=== PATIENT | male | born 1940 | race Caucasian/White ===

== ENCOUNTER 2017-01-14 10:20 | Day surgery (SDC) | payer BC, OTHER ==
[2016-12-31 11:28] VITALS: BMI 24.0
--- NOTE | 2016-12-31 12:02 | PAT Medication Instructions ---
Service Date Dec 31, 2016. Current Home Medication List Aspirin (Aspirin Ec), 81 MG PO Q2D Atorvastatin (Lipitor), 40 MG PO Q2D Dutasteride (Avodart), 0.5 MG PO 1400 Epinephrine (Epipen), 0.3 MG IM UD Lisinopril/Hctz (Zestoretic 20MG/25MG), 1 TAB PO QAM Omeprazole (Prilosec), 20 MG PO QDD Medication Instructions For Your Scheduled Surgery Epinephrine (Epipen), 0.3 MG IM UD (use as directed if needed) - Check with surgeon for instructions: Aspirin (Aspirin Ec), 81 MG PO Q2D - Hold the following medications the morning of surgery: Lisinopril/Hctz (Zestoretic 20MG/25MG), 1 TAB PO QAM - Take the following medications as scheduled the night before surgery: Atorvastatin (Lipitor), 40 MG PO Q2D Dutasteride (Avodart), 0.5 MG PO 1400 Omeprazole (Prilosec), 20 MG PO QDD If you have any questions please call us at [phone] or [phone] or [phone]
--- NOTE | 2016-12-31 12:28 | DIAGNOSTIC IMAGING REPORT ---
CHEST PREADMISSION(PA/LAT) CLINICAL HISTORY: 76 years-old Male presenting with PAT. TECHNIQUE: PA and lateral views of the chest were obtained. COMPARISON: None. FINDINGS: Atherosclerosis of aortic arch. Cardiac silhouette normal in size. Apparent nodule projecting over the periphery of the left midlung may represent a overlapping bone island in the left sixth rib given its density. Lungs and pleural spaces clear. Degenerative changes of the thoracic spine. Upper abdomen normal. IMPRESSION: 1. No acute cardiopulmonary disease. Electronically signed by: Rivas Moran M.D. 12/31/2016 12:27 PM Dictated Date/Time: 12/31/2016 12:26 PM
[2016-12-31 12:51] LABS: BASO % 0.4 %; BASO ABS # 0.03 K/uL (0-0.2); COMPLETE YES; EOS % 1.2 %; HEMATOCRIT 45.6 % (42-52); IG% 0.1 %; LYMPH % 16.3 %; LYMPH ABS # 1.36 K/uL (1.2-3.4); MEAN CELL VOLUME 92.5 fL (80-100); MEAN CORPUSCULAR HEMOGLOBIN 32.7 pg (25-34); MEAN CORPUSCULAR HGB CONC 35.3 g/dl (32-36); MEAN PLATELET VOLUME 9.6 fL (7.4-10.4); MONO % 8.6 %; NEUT % 73.4 %; PLATELET COUNT 241 K/uL (130-400); RED BLOOD COUNT 4.93 M/uL (4.7-6.1); WHITE BLOOD COUNT 8.34 K/uL (4.8-10.8)
[2016-12-31 12:59] LABS: URINE APPEARANCE CLEAR (CLEAR); URINE BILIRUBIN NEG (NEG); URINE COLOR YELLOW; URINE NITRITE NEG (NEG); URINE SPECIFIC GRAVITY 1.011 (1.000-1.030); UROBILINOGEN NEG (NEG)
[2016-12-31 13:07] LABS: MANUAL MICROSCOPIC REQUIRED? NO; REVIEW REQ? NO
[2016-12-31 13:18] LABS: BUN/CREATININE RATIO 17.7 (10-20); CALCIUM 8.7 mg/dl (8.5-10.1); CREATININE 1.2 mg/dl (0.60-1.40); POTASSIUM 3.6 mmol/L (3.5-5.1)
[~2017-01-14] VITALS: Ht 182.9 cm; Wt 79.8 kg
[~2017-01-14 10:20] MED LIST: ASPI81TA28 PO; ATOR-24 PO; ATROPINE SULFATE 0.1 MG/ML 5ML SYR IV PRN; CIPROFLOXACIN / D5W 400 MG IV SCH; DUTA0.5C PO; EPP3/2 IM; EpHEDrine SULFATE INJ 50 MG/ML AMP IV PRN; FENTANYL CITRATE INJ 50 MCG/1 ML 2 ML VIAL IV PRN; HYDROmorphone INJ 1 MG/ML SYR IV PRN; LACTATED RINGER'S 1000ML 1,000 ML IV SCH; LISI-788 PO; ONDANSETRON INJ 2 MG/ML 2 ML VIAL IV PRN; PRLSR20 PO
[2017-01-14 10:37] VITALS: BP 115/82; PULSE 112; TEMP 37.1; O2SAT 94; Ht 182.9 cm; Wt 79.8 kg
[2017-01-14] MEDS ORDERED: FENTANYL CITRATE INJ 50 MCG/1 ML 2 ML VIAL IV PRN (11:00)
[2017-01-14] MEDS ORDERED: HYDROmorphone INJ 1 MG/ML SYR IV PRN (11:00)
[2017-01-14] MEDS ORDERED: PHENYLEPHRINE 100MCG/ML 5ML SYR IV PRN (11:00)
[2017-01-14] MEDS ORDERED: ONDANSETRON INJ 2 MG/ML 2 ML VIAL IV PRN (11:00)
[2017-01-14] MEDS ORDERED: ATROPINE SULFATE 0.1 MG/ML 5ML SYR IV PRN (11:00)
[2017-01-14] MEDS ORDERED: EpHEDrine SULFATE INJ 50 MG/ML AMP IV PRN (11:00)
--- NOTE | 2017-01-14 11:45 | History & Physical Bridge Note ---
H&P Re-Evaluation Bridge Note: I have examined the patient, reviewed the History & Physical and in the interval since the performance of the History & Physical I have noted the following changes of clinical significance: No changes noted
[2017-01-14] MEDS ORDERED: LIDOCAINE HCL 2% 2 ML VIAL (20MG/ML) ONE (11:46)
[2017-01-14] MEDS ORDERED: MIDAZOLAM HCL 1 MG/ML 2ML VIAL ONE (11:46)
[2017-01-14] MEDS ORDERED: ONDANSETRON INJ 2 MG/ML 2 ML VIAL ONE (11:46)
[2017-01-14] MEDS ORDERED: DEXAMETHASONE SOD INJ 4 MG/ML VIAL ONE (11:46)
[2017-01-14] MEDS ORDERED: PROPOFOL IV EMULSION 10 MG/ML 20 ML VIAL IV ONE (11:46)
[2017-01-14] MEDS ORDERED: FENTANYL CITRATE INJ 50 MCG/1 ML 2 ML VIAL ONE ×3 (11:47→12:39)
[2017-01-14] MEDS ORDERED: EpHEDrine SULFATE INJ 50 MG/ML AMP ONE (12:34)
[2017-01-14] MEDS ORDERED: SODIUM CHLORIDE 0.9% INJ 10 ML VIAL ONE (12:34)
[2017-01-14] MEDS ORDERED: PHENYLEPHRINE HCL INJ 10 MG/ML VIAL ONE (12:34)
[2017-01-14] MEDS ORDERED: OXYC-57 PO (13:44)
[2017-01-14] MEDS ORDERED: DOCU-94 PO (13:44)
[2017-01-14] MEDS ORDERED: NITR-5 PO (13:44)
--- NOTE | 2017-01-14 13:46 | Discharge Instructions ---
Discharge Instructions Date of Service Jan 14, 2017. Visit Reason for Visit: Urinary Retention, Benign Prostatic Hypertrophy Discharge Discharge Diagnosis / Problem: urinary retention Discharge Goals Goal(s): Therapeutic intervention Activity Recommendations Activity Limitations: as noted below Lifting Limitations: gradually increase as tolerated Exercise/Sports Limitations: until after follow-up appointment May Resume Sexual Activity: after follow-up appointment Shower/Bathe: no limitations Driving or Machine Use: resume 3 days after discharge Anesthesia . Post Anesthesia Instructions: If you have had General Anesthesia or IV Sedation: * Do not drive today. * Resume driving when surgeon permits. * Do not make important decisions or sign legal documents today. * Call surgeon for: 1. Temperature elevations greater than 101 degrees F. 2. Uncontrollable pain. 3. Excessive bleeding. 4. Persistent nausea and vomiting. 5. Medication intolerance (nausea, vomiting or rash). * For nausea and vomiting use only clear liquids such as: tea, soda, bouillon until nausea subsides, then gradually increase diet as tolerated. * If you have any concerns or questions, call your surgeon's office. If physician is unavailable and it is an emergency, call 911 or go to the nearest emergency room. . Diet Recommendations Recommended Home Diet: resume previous diet Procedures Procedures Performed: Button Transurethral Resection Prostate Pending Studies Studies pending at discharge: no Medical Emergencies . Who to Call and When: Medical Emergencies: If at any time you feel your situation is an emergency, please call 911 immediately. . Non-Emergent Contact Non-Emergency issues call your: Urologist Call Non-Emergent contact if: temperature is above 101.5, your pain is not controlled . . "Provider Documentation" section prepared by Maykel Reeder. . [place] Drug Monitoring Program Search Results: patient reviewed within database
[2017-01-14] MEDS ORDERED: OXYCODONE/ACETAMINOPHEN 5-325 TAB PO PRN (14:00)
--- NOTE | 2017-01-14 14:12 | Anesthesiology Progress Note ---
Anesthesia Post Op Note Date & Time Jan 14, 2017 at 14:12 Vital Signs Pain Intensity: 0 Vital Signs Past 12 Hours Date Time Temp Pulse Resp B/P (MAP) Pulse Ox O2 Delivery O2 Flow Rate FiO2 01/14/17 14:05 80 13 137/87 95 Room Air Oxymask 01/14/17 13:55 81 20 132/86 98 Oxymask 10 01/14/17 13:48 88 14 128/82 99 Oxymask 10 01/14/17 13:39 36.0 87 16 107/78 98 Oxymask 10 01/14/17 10:37 37.1 112 18 115/82 (93) 94 Room Air Notes Mental Status: alert / awake / arousable, participated in evaluation Pt Amnestic to Procedure: Yes Nausea / Vomiting: adequately controlled Pain: adequately controlled Airway Patency, RR, SpO2: stable & adequate BP & HR: stable & adequate Hydration State: stable & adequate Anesthetic Complications: no major complications apparent
[2017-01-14 14:25] VITALS: BP 156/75; PULSE 88; TEMP 36.7; O2SAT 93
[2017-01-14 15:00] VITALS: BP 147/86; PULSE 89; TEMP 36.4; O2SAT 93
--- NOTE | 2017-01-14 15:22 | [facility] Operative Report ---
Operative Report Operative Date Jan 14, 2017. Pre-Operative Diagnosis Urinary Retention Post-Operative Diagnosis Urinary Retention Procedure(s) Performed Button Transurethral Resection Prostate Surgeon Lilli Stereotyper Helper Surgeon(s) none Estimated Blood Loss 20cc Findings Cystoscopic exam revealed a normal anterior urethra prostatic fossa was obstructing with kissing lateral lobes and a very elevated median lobe with a ball valve type configuration bladder showed 1-2+ trabeculation with cellules Specimens None per surgeon Drains 20 [place]ican Dumont Anesthesia Gen. Complication(s) None Disposition Recovery Room / PACU Indications Patient's a 76-year-old white male who has been in urinary retention with a Dumont catheter is being brought in now for transurethral vaporization of the prostate Description of Procedure After the induction of an adequate general anesthetic and appropriate timeout patient was placed in the dorsal lithotomy position. Lower abdomen and genitalia were prepped with Hibiclens draped in the sterile fashion. Using a 22 [place]ican cystoscope routine cystoscopic exam was performed with the above- noted findings. Next the fossa navicularis was dilated to 28 [place]ican with Jes sounds. 24 [place]ican resection scope and vaporization loop were inserted. Under direct vision. Prostatic adenoma was vaporized from the bladder neck to the verumontanum from 1 :00 to 6:00 clockwise 11:00 to 6:00 counterclockwise strip between 11 and 1 at the bladder neck was left untouched to help prevent bladder neck contractions. after opening up the prostatic fossa Rodirguez knife was used to incise the bladder neck at 5 and 7:00 following this any bleeding points were like coagulated. Bladder was reinspected there were no tissue fragments remaining in the bladder. After getting hemostasis bladder was filled patient voided with good stream on Cred maneuver. 20 [place] Dumont cath inserted per urethra into the bladder and hooked to gravity drainage. All needle sponges counts were correct at the end of the case. Patient tolerated the procedure well and was taken to the recovery room in stable condition I attest to the content of the Intraoperative Record and any orders documented therein. Any exceptions are noted below.
== END 2017-01-14 15:28 | disposition home or self-care (01) ==
LOC: C.ACU 10:20
PROVIDERS: ATTEND Urology
DX: N40.1 Benign prostatic hyperplasia with lower urinary tract symptoms (principal); R33.8 Other retention of urine; I10 Essential (primary) hypertension; E78.5 Hyperlipidemia, unspecified; J45.909 Unspecified asthma, uncomplicated; K21.9 Gastro-esophageal reflux disease without esophagitis; R91.1 Solitary pulmonary nodule; Z87.891 Personal history of nicotine dependence; Z79.82 Long term (current) use of aspirin; Z79.899 Other long term (current) drug therapy

== ENCOUNTER 2017-06-11 11:15 | Inpatient (IN) | payer BC, OTHER ==
[~2017-06-11] VITALS: Ht 182.9 cm; Wt 79.5 kg
[~2017-06-11 11:15] MED LIST changes: -ATROPINE SULFATE 0.1 MG/ML 5ML SYR IV PRN; -CIPROFLOXACIN / D5W 400 MG IV SCH; -EpHEDrine SULFATE INJ 50 MG/ML AMP IV PRN; -FENTANYL CITRATE INJ 50 MCG/1 ML 2 ML VIAL IV PRN; -HYDROmorphone INJ 1 MG/ML SYR IV PRN; -LACTATED RINGER'S 1000ML 1,000 ML IV SCH; +NITR-5 PO; -ONDANSETRON INJ 2 MG/ML 2 ML VIAL IV PRN; +OXYC-57 PO
[2017-06-11 16:20] VITALS: BP 144/82; PULSE 87; TEMP 36.8; O2SAT 95
[2017-06-11 16:21] VITALS: O2SAT 95; Ht 182.9 cm; Wt 79.5 kg
[2017-06-11 16:30] VITALS: O2SAT 95
[2017-06-11] MEDS ORDERED: ONDANSETRON INJ 2 MG/ML 2 ML VIAL IV PRN (17:00)
[2017-06-11] MEDS ORDERED: OXYCODONE/ACETAMINOPHEN 5-325 TAB PO PRN ×2 (17:00)
[2017-06-11] MEDS ORDERED: MoRPHine SULFATE 2 MG/ML CARP IV PRN (17:00)
[2017-06-11] MEDS ORDERED: ACETAMINOPHEN 325 MG TAB PO PRN (17:00)
[2017-06-11] MEDS ORDERED: ALUMINUM/MAGNESIUM/SIMETH (MAALOX MAX) 30 ML UDC PO PRN (17:00)
--- NOTE | 2017-06-11 17:10 | History and Physical ---
History & Physical Date & Time of Service: Jun 11, 2017 at 16:52 Chief Complaint: Loculated Hemothroax Primary Care Physician: Javier Livingston M.D. History of Present Illness Source: patient This is a 76 yo M with PMHx of HTN, HLD, COPD, emphysema, solitary pulmonary nodule, asthma, asbestos exposure, hx of chronic tobacco abuse, BPH and enlarged prostate, and GERD who presents from [facility] after being evaluated by Dr. Hawkins for Left sided hemothorax vs loculated effusions. Pt sustained L sided chest wall trauma from falling off a 4 foot high stoop, and subsequently suffered multiple rib fractures. Pt has been treated with a Triflow , however symptoms have progressed to the point where he is unable to perform triflow without pain nor was as efficient and was becoming more short of breath , so subsequently called 911. Pt [address] of the chest completed and showed a moderate sized collection of fluid in the left lung, which was considered to he a complex pleural effusion vs hemothorax, no pneumothorax. There are moderately displaced posteriolateral 8-10 rib fractures. CTA was negative for PE. He was treated with zithromax and rocephin for possible pneumonia. He reports pain is fairly well controlled, and only painful with deep breaths and cough. Has been using tylenol and ibuprofen. He does not need supplemental O2 at baseline. Plan was discussed with the patient and his over the phone. All their questions and concerns were answered. At OSH hgb = 13.2, hct = 37.9, WBC = 13.1. CT chest outpatient records reviewed as above. Past Medical/Surgical History Medical Problems: (1) Asthma (2) BPH (benign prostatic hyperplasia) (3) COPD (chronic obstructive pulmonary disease) (4) Emphysema lung (5) Hemothorax on left (6) History of tobacco abuse (7) HLD (hyperlipidemia) (8) HTN (hypertension) (9) Solitary pulmonary nodule (10) Urinary retention Family History FHx: brain tumor FHx: colon cancer FHx: myocardial infarction Social History Smoking Status: Former Smoker Smokeless Tobacco Use: No Alcohol Use: none Drug Use: none Marital Status: Housing status: lives with family Occupational Status: retired Allergies Coded Allergies: BEE STING (Verified Allergy, Severe, anaphylaxis, 12/31/16) has epi pen NO KNOWN DRUG ALLERGIES (Verified Allergy, Unknown, nkda, 01/14/17) Home Medications Scheduled Aspirin (Aspirin Ec), 81 MG PO Q2D Atorvastatin (Lipitor), 40 MG PO Q2D Dutasteride (Avodart), 0.5 MG PO 1400 Epinephrine (Epipen), 0.3 MG IM UD Lisinopril/Hctz (Zestoretic 20MG/25MG), 1 TAB PO QAM Omeprazole (Prilosec), 20 MG PO QDD Review of Systems Constitutional: No fever, sweats or chills Eyes: No diplopia, no worsening or blurred vision ENT: normal hearing, no trouble swallowing Respiratory: See HPI Cardiovascular: No chest pain, tightness or palpitations Abdomen: No pain, nausea, vomiting, diarrhea or constipation Musculoskeletal: No joint pain, calf pain, swelling Neurologic: No weakness, numbness/tingling, or balance problems Psychiatric: No anxiety or depression Skin: No rash or itch Physical Exam Vital Signs Date Time Temp Pulse Resp B/P (MAP) Pulse Ox O2 Delivery O2 Flow Rate FiO2 06/11/17 16:21 95 Nasal Cannula 2.0 06/11/17 16:20 36.8 87 17 144/82 (102) 95 Nasal Cannula 2.0 General: awake, alert, no apparent distress Head: Normocephalic, atraumatic ENT: PERRL, EOMI, no pharyngeal exudate, mucous membranes moist Chest: On 2 L via NC, diminished breath sounds in the left lower lobe, no crackles, wheezes or rales Cardiac: Regular rate and rhythm, no murmur, no JVD, normal peripheral pulses, good capillary refill Abdominal: NABS x 4 quadrants, soft, nontender to palpation, no rebound, guarding or tenderness Extremities: Normal inspection, no peripheral edema or erythema, calfs nontender to palpation Psych: Normal mood and affect Neuro: AAO x 3, strength intact bilaterally and related 5/5, no motor deficits, speech is clear, no peripheral sensory deficits Diagnostics Diagnostic Radiology Reviewed as per outpatient notes Imaging studies have been requested from [facility] EKG Ordered Impression Assessment and Plan 76 yo M with PMHx of HTN, HLD, COPD, emphysema, solitary pulmonary nodule, asthma, asbestos exposure, hx of chronic tobacco abuse, BPH and enlarged prostate, and GERD who presents from [facility] after being evaluated by Dr. Hawkins for Left sided hemothorax vs loculated effusions. Pt sustained L sided chest wall trauma from falling off a 4 foot high stoop, and subsequently suffered multiple rib fractures. Pt has been treated with a Triflow, however symptoms have progressed to the point where he is unable to perform triflow without pain nor was as efficient and was becoming more short of breath, so subsequently called [address]. Pt [address] of the chest completed and showed a moderate sized collection of fluid in the left lung, which was considered to he a complex pleural effusion vs hemothorax, no pneumothorax. There are moderately displaced posteriolateral 8-10 rib fractures. CTA was negative for PE. He was treated with zithromax and rocephin for possible pneumonia. Complex pleural effusion versus hemothorax History of COPD History emphysema Remote history of chronic tobacco use/asbestos exposure Solitary pulmonary nodule Posteriolateral rib fractures, left 8-10 -Admit to MedSurg -Check CBC -hemoglobin at OSH equal to 13.1, PRP -consult pulmonary medicine and thoracic surgery for possible procedure: VATS, thoracoscopy -Continue incentive spirometry, flutter therapy -Analgesia with tylenol, ibuprofen, just finishing it you want me to see for a one since them on the floor can go upstairs and see for a 1 to this is sure so this 1 is [place] state and this is a needs of bronchi Dr. Louis thank you Percocets, IV morphine, Tylenol, -use a splint with deep breaths/cough and encourage ambulation Hypertension -Continue CODE CLERK meds: HCTZ/lisinopril 20-25 HLD -Continue statin therapy BPH/ urinary retention - Cont avodart DVT prophylaxis: Teds, SCDs, no chemical anticoagulation with possibility of hemothorax CODE STATUS: Full code Disposition: Patient from home, lives with possible discharge in~2 days I personally interviewed and examined the patient. I agree with history of present illness and physical exam mentioned above, I also performed my own history taking and examination. Past medical history and review of system has been obtained by myself I reviewed all pertinent labs and studies Reviewed current medications I discussed and formulated of the assessment and plan mentioned above. Please refer to the Summary mentioned below. 76-year-old man with past medical history of hypertension, dyslipidemia, COPD, emphysema, solitary pulmonary nodule, asthma, chronic tobacco abuse, BPH, GERD, history of asbestosis exposure. Patient had a mechanical fall and landed on his left side of his chest, had multiple rib fractures currently complicated by a loculated effusion/possible hemothorax. He was transferred for possible chest tube or VATS Consult cardiothoracic surgeon, n.p.o. from midnight, check INR Pain management, incentive spirometer. General Appearance: not in acute distress Eyes: normal Sclerae, extraocular muscle intact ENT: hearing grossly normal Neck: supple Respiratory/Chest: normal air entry bilateral ,no respiratory distress, no accessory muscle use Cardiovascular: regular rate, rhythm, no murmur Abdomen: non tender, soft, no masses Extremities: no edema musculoskeletal: no significant swelling or inflammation in any joint Neurologic/Psychiatric: Awake alert oriented times place and person moves all extremities sensation intact cranial nerves II-12 appear to be intact Skin: normal color, warm/dry, no rash Sameer Leo MD, [facility] Advanced Directives Existing Living Will: No Existing Power of Wind Turbine Machinist: No Resuscitation Status VTE Prophylaxis Will order VTE Prophylaxis: No Reason for no VTE drug order: Contraindicated Reason no Mechanical VTE Order: Treatment not indicated
[2017-06-11] MEDS ORDERED: EPINEPHRINE ADULT AUTO-INJECT 0.3 MG SYR IM SCH (17:45)
[2017-06-11] MEDS ORDERED: IBUPROFEN 200 MG TAB PO PRN (17:45)
[2017-06-11] MEDS: PANTOprazole SOD 40 MG TAB PO SCH (17:45)
[2017-06-11 17:50] LABS: BASO % 0.2 %; BASO ABS # 0.02 K/uL (0-0.2); EOS % 0.3 %; EOS ABS # 0.04 K/uL (0-0.5); HEMATOCRIT 35.9 % (42-52); HEMOGLOBIN 12.6 g/dL (14.0-18.0); IG# 0.02 K/uL (0.00-0.02); LYMPH ABS # 0.94 K/uL (1.2-3.4); MEAN CELL VOLUME 91.6 fL (80-100); MEAN CORPUSCULAR HEMOGLOBIN 32.1 pg (25-34); MEAN CORPUSCULAR HGB CONC 35.1 g/dl (32-36); MEAN PLATELET VOLUME 9.1 fL (7.4-10.4); MONO % 7.8 %; MONO ABS # 0.91 K/uL (0.11-0.59); NEUT % 83.5 %; NEUT ABS # 9.79 K/uL (1.4-6.5); PLATELET COUNT 207 K/uL (130-400); RED CELL DISTRIBUTION WIDTH CV 13.2 % (11.5-14.5); RED CELL DISTRIBUTION WIDTH SD 43.6 fL (36.4-46.3); WHITE BLOOD COUNT 11.72 K/uL (4.8-10.8)
[2017-06-11 18:19] LABS: CALCIUM 8.3 mg/dl (8.5-10.1); CREATININE 1.07 mg/dl (0.60-1.40)
[2017-06-11] MEDS: CEFTRIAXONE SOD INJ 1,000 MG in DEXTROSE 5% 50ML 50 ML IV SCH (18:33)
[2017-06-11] MEDS: ATORVASTATIN 40 MG TAB PO SCH (20:44)
[2017-06-11] MEDS ORDERED: ERGOCALCIFEROL 50,000 INTER.UNIT CAP PO SCH (22:00)
[2017-06-11 22:48] VITALS: BP 132/77; PULSE 72; TEMP 36.8; O2SAT 91
[2017-06-12 07:15] LABS: BASO % 0.5 %; BASO ABS # 0.03 K/uL (0-0.2); EOS % 1.8 %; EOS ABS # 0.12 K/uL (0-0.5); HEMOGLOBIN 11.7 g/dL (14.0-18.0); IG# 0.02 K/uL (0.00-0.02); LYMPH % 14.6 %; LYMPH ABS # 0.97 K/uL (1.2-3.4); MEAN CELL VOLUME 92.6 fL (80-100); MEAN CORPUSCULAR HEMOGLOBIN 31.9 pg (25-34); MEAN CORPUSCULAR HGB CONC 34.4 g/dl (32-36); MEAN PLATELET VOLUME 9.4 fL (7.4-10.4); MONO % 11.4 %; MONO ABS # 0.76 K/uL (0.11-0.59); NEUT % 71.4 %; NEUT ABS # 4.74 K/uL (1.4-6.5); PLATELET COUNT 181 K/uL (130-400); RED CELL DISTRIBUTION WIDTH CV 13.1 % (11.5-14.5); RED CELL DISTRIBUTION WIDTH SD 44.4 fL (36.4-46.3); WHITE BLOOD COUNT 6.64 K/uL (4.8-10.8)
[2017-06-12 07:50] LABS: ALBUMIN 3.1 gm/dl (3.4-5.0); CALCIUM 8.3 mg/dl (8.5-10.1); POTASSIUM 4.1 mmol/L (3.5-5.1)
[2017-06-12 07:53] LABS: TOTAL PROTEIN 5.9 gm/dl (6.4-8.2)
[2017-06-12 07:58] VITALS: BP 138/76; PULSE 78; TEMP 36.7; O2SAT 93
[2017-06-12] MEDS: AVODART: ORDER AWAITING ACTION SCH ×3 (08:00→15:43)
--- NOTE | 2017-06-12 08:25 | SURGICAL CONSULTATION ---
DATE OF CONSULTATION: 06/12/2017 REASON FOR CONSULTATION: Right hemothorax. HISTORY OF PRESENT ILLNESS: Anant Gibbons is a relatively healthy 76-year-old male who does have a history of cigarette smoking. He is followed by Mr. Magdy Singh, from a pulmonary standpoint, sees him on a yearly basis and saw him on March 01 and was told he was "in good shape" He does have a history of asthma with some mild asbestos exposure. He smoked for about 30 years and about a quarter of a pack a day, but quit in 1989. Ten days ago, the patient slipped and fell off of the stoop and fractured some ribs on the left side. He was evaluated in the Emergency Room and seem to have fractured ribs at [facility], but then he was treated with pain meds and was "getting along all right" until he noted that the amount that he was able to inhale with his incentive spirometer decreased. He then became quite short of breath and dyspneic. He was evaluated by Dr. Gt Hawkins yesterday was noted to have a large loculated effusion on the left. He was transferred up here. He has had no fevers and no chills. I was asked to evaluate him from a thoracic standpoint. Apparently, it appears that he has a complex hemothorax. PAST MEDICAL HISTORY: 1. Chronic obstructive pulmonary disease (mild). 2. Benign prostatic hypertrophy. 3. Asthma. 4. History of tobacco use. 5. Hypertension. 6. Hyperlipidemia. 7. History of urinary retention in the past. 8. Apparent solitary pulmonary nodule. PAST SURGICAL HISTORY: Noncontributory. MEDICATIONS (AT HOME): 1. Aspirin. 2. Lipitor. 3. Avodart. 4. Zestoretic. 5. Prilosec. ALLERGIES: No known drug allergies. SOCIAL HISTORY: The patient worked for [employer] for 37 years. He lives with his . He was in the army. He smoked from the age of 18 until 48. He states a pack of cigarettes would last him for a week. He lives at home with his . He is retired. FAMILY MEDICAL HISTORY: Significant for history of colon cancer, coronary artery disease, hypertension, hyperlipidemia and history of brain tumor. His 2 children and 6 grandchildren are healthy. REVIEW OF SYSTEMS: His weight has been stable. He denies fevers or chills. Really his only complaint is respiratory and left-sided chest pain of course which is actually improved over the last 10 days. He denies hemoptysis. He has had no decreased vision or auditory symptoms. He has had no neurologic symptoms. He denies chest tightness or palpitations. He has had no GI or symptoms. He denies any wound breakdown. PHYSICAL EXAMINATION: GENERAL: This is a well developed, well nourished male who appears younger than his stated age of 76. The patient stands 6 feet tall and weighs 175 pounds. He wears glasses. HEENT: Extraocular movements are intact. Pupils are equal, round, reactive. Sclerae are anicteric. He has no oral mucosal lesions. His tongue is midline. NECK: Supple. He has no tracheal deviation or neck vein distention. He has no supraclavicular or cervical lymphadenopathy. He has a regular rate and rhythm of his heart. He does have decreased breath sounds on the left. He has pain on the posterolateral aspect of his left lateral chest; however, there is no ecchymosis and no crepitus. ABDOMEN: Nice and soft with no evidence of ascites or hepatosplenomegaly. HEART: He has a regular rate and rhythm of his heart; however, his heart sounds are a bit distant. EXTREMITIES: He has excellent peripheral pulses. No joint effusions. NEUROLOGIC: He is completely intact. Cranial nerves II-XII are intact. ASSESSMENT AND PLAN: Loculated effusion with probable hemothorax. His hemoglobin this morning is 11.7. We have 2 options. One option would be to insert a chest tube and do the MIST2 protocol; however, I think the better part of valor in this patient will be to take him to the operating room and do a thoracoscopy with evacuation of the hemothorax and an Exparel block to help control his pain. I think this will lead to an expedient resolution of this problem. [facility]
[2017-06-12] MEDS: ASPIRIN 81 MG ECTAB PO SCH (08:54)
[2017-06-12] MEDS: LIDODERM (LIDOCAINE) PATCH 5% TD SCH (08:57)
[2017-06-12] MEDS ORDERED: LISINOPRIL/HCTZ 20/25MG TAB PO SCH (09:00)
--- NOTE | 2017-06-12 10:28 | PULMONARY CONSULTATION ---
DATE OF CONSULTATION: 06/12/2017 Pulmonary consultation. TIME: 8:40 a.m. REPORT OF CONSULTATION: The patient was seen in room 377, bed 2. He is a 76-year-old male who suffered a fall outside of his home on 06/02/2017. He apparently fell off a 4-feet high stoop. He states that he hit the railing and then at the bottom hit the post. He had some modest amount of pain. The patient lives alone. It began to hurt more the next day. He went to an urgent care and was told that he had 2 rib fractures. He was given some tramadol and incentive spirometry. He was using the incentive device and was able to get up to the 3500 anastasiya. Over the next several days, the amount of air he could move on the incentive continuously declined. He also had increased pain. On 06/10/2017, he states he could only get the incentive up to 2000 which was only a little more than half of what it had been previously. He was having more shortness of breath. He felt like it was harder to take a deep breath. The pain was increasing. He then went to [facility]. He was admitted there. Dr. Hawkins saw him on consult and recommended he be moved to [facility] for evaluation and treatment. The patient overall feels pretty good at the present time. His breathing is not bothering him, although he is not doing anything for exertion. He has been on low-flow oxygen. He has just a slight cough. He is not expectorating any phlegm. The patient states he usually has no shortness of breath. He denies difficulty going up steps. He denies difficulty walking long distances on level ground. The patient lives in a log home by himself. He states he has a basement and he has no difficulty going up the steps to the first floor. He in the past had had a lung nodule that apparently was followed. There was no significant change. The patient denies to me a history of asthma or COPD, although some of his records suggest that he may have had asthma. In 2008, he had pulmonary function testing done that showed a mild obstructive pattern with improvement following bronchodilators. He states that he was on Symbicort for a short time but nothing since then. He has never had any anesthesia problems. PAST SURGICAL HISTORY: 1. Tonsillectomy. 2. Some type of prostate procedure. PAST MEDICAL HISTORY: 1. BPH with obstruction. 2. GERD. 3. Hyperlipidemia. 4. Hypertension. SOCIAL HISTORY: The patient smoked from 1959 until 1986 and he states it was only 3 cigarettes per day. Alcohol use is 1 beer per week. ALLERGIES: No known medication allergies. HE IS ALLERGIC TO BEE STINGS. FAMILY HISTORY: Twin brother with colon cancer. Mother at age 82 with an OH. Patient's brother that had colon cancer also had mets to the brain. Father at age 89 of what he calls natural causes. MEDICATIONS: At home: 1. Aspirin 81 mg daily. 2. Atorvastatin 40 mg every other day. 3. Dutasteride 0.5 mg daily. 4. Lisinopril/HCTZ 1 daily. 5. Omeprazole 20 mg daily. REVIEW OF SYSTEMS: The patient denies headache, dizziness, lightheadedness. Denies any appetite problems. Denies any bowel problems. He has had some chronic urinary problems. Review of systems is negative except as noted above. Ten systems reviewed. PHYSICAL EXAMINATION: GENERAL: Mr. Gibbons is a very pleasant 76-year-old male who was cooperative, alert and oriented. He was in no distress. VITAL SIGNS: Weight is 79.5 kilograms. Temperature is 36.7. HEENT: Pupils were reactive to light. He appears to have cataract formation. Nares were unremarkable. Mouth exam showed dentures on top. No erythema or exudate was noted. NECK: Palpation of the neck reveals no lymph nodes. Neck veins were not distended. CARDIOVASCULAR: Cardiac rate was 78 per minute. He did have occasional and at times frequent extrasystoles. These were not seen on his baseline EKG. He has never been told of cardiac arrhythmia in the past. Blood pressure was 138/76. CHEST: Showed slightly diminished excursion. Auscultation reveals very diminished breath sounds in the left lower chest and the breath sounds that are heard are tubular in nature. There was no egophony noted. Respiratory rate is 20. Saturation is 93% on 2-liter nasal cannula. ABDOMEN: Soft. Bowel sounds were present. There was no tenderness to palpation, masses or organomegaly. EXTREMITIES: Showed no cyanosis, clubbing or edema. I have reviewed the patient's x-rays from [facility]. He has an increased opacification in the left lower lung field on chest x-ray. CAT scan would suggest that this is at least partially loculated fluid, perhaps associated with some atelectasis. He is reported to have fractures at the 8th, 9th and 10th ribs. LABORATORY DATA: White count is 6.64. Hemoglobin 11.7. Platelets 181,000. INR is 1. Electrolytes show sodium 137, potassium 4.1, chloride 107, bicarbonate 27. BUN is 20 with a creatinine of 1. Calcium was 8.3. Magnesium 2.4. Liver functions normal. Albumin 3.1 and protein 5.9. EKG showed a sinus rhythm with a rate of 76. There was no extrasystole seen, although they were heard on exam. No significant abnormalities were noted. IMPRESSION: 1. Left hemothorax. 2. Status post fall. 3. Multiple rib fractures. 4. History of lung nodule. COMMENTS AND RECOMMENDATIONS: The patient was seen earlier today by Dr. Christianson. His feeling is that the patient is likely going to need a surgical procedure to clear out the loculated fluid which is probably blood. I agree with that. The patient seems to be in good health and a good candidate for the procedure. He has been doing incentive spirometry. The patient is on aspirin. I will defer to Dr. Christianson as to whether that should be held. He is having some extrasystoles on exam, but none seen on EKG. We will follow this patient with you. He does have a history of some airflow obstruction in the past. He may need at least p.r.n. nebulizer treatments postoperatively.
[2017-06-12 11:20] VITALS: BP 120/65; PULSE 62; TEMP 37.1; O2SAT 93
--- NOTE | 2017-06-12 14:10 | Anesthesiology Progress Note ---
Pre-OP Anesthesia Assessment Date of Note Jun 12, 2017. Review patient information reviewed, chart reviewed, labs reviewed, acceptable for surgery Notes The patient has a left-sided loculated hemothorax, but is not short of breath. He has mild asthma and COPD but does not need inhalers or supplemental oxygen. He is very physically active. He had a cardiac catheterization several years ago and per the patient it only showed a 20% lesion in one lung. His airway is good and favorable for a double lumen tube. He is acceptable for surgery and anesthesia tomorrow.
[2017-06-12 14:35] VITALS: BP 126/70; PULSE 76; O2SAT 91
[2017-06-12 15:24] VITALS: BP 113/69; PULSE 71; TEMP 37.1; O2SAT 93
[2017-06-12] MEDS: PANTOprazole SOD 40 MG TAB PO SCH (17:30)
[2017-06-12] MEDS: CEFTRIAXONE SOD INJ 1,000 MG in DEXTROSE 5% 50ML 50 ML IV SCH (17:30)
[2017-06-12 18:23] VITALS: PULSE 91
--- NOTE | 2017-06-12 21:30 | Progress Note ---
Subjective Date of Service: Jun 12, 2017. Subjective Pt evaluation today including: conversation w/ patient, physical exam, chart review, lab review, review of studies (outside records from [facility]), conversation w/ cruise consultant (critical care), review of inpatient medication list Pain: mild left-sided rib pain/pleuritic pain PO Intake: eating well Voiding: no voiding problems patient feeling good mild left-sided chest wall pain no dyspnea no cough Review of Systems Constitutional: No fever, No chills Respiratory: No shortness of breath Abdomen: No pain Objective Vital Signs Date Time Temp Pulse Resp B/P (MAP) Pulse Ox O2 Delivery O2 Flow Rate FiO2 06/12/17 18:23 91 Room Air 06/12/17 15:35 Nasal Cannula 2.0 06/12/17 15:24 37.1 71 18 113/69 (84) 93 Nasal Cannula 2.0 06/12/17 14:35 76 91 06/12/17 11:20 37.1 62 20 120/65 (83) 93 Nasal Cannula 2.0 06/12/17 08:00 Nasal Cannula 2.0 06/12/17 07:58 36.7 78 20 138/76 (96) 93 Nasal Cannula 2.0 06/11/17 23:15 Nasal Cannula 2.0 06/11/17 22:48 36.8 72 18 132/77 (95) 91 Nasal Cannula 2.0 Physical Exam General Appearance: no apparent distress ENT: pharynx normal Neck: no JVD Respiratory/Chest: no respiratory distress, no accessory muscle use, + decreased breath sounds (left base, about 1/3-1/[address] up back; otherwise CTA b/ l ) Cardiovascular: regular rate, rhythm, no gallop, no murmur Abdomen: normal bowel sounds, non tender, soft, no organomegaly Extremities: no pedal edema Neurologic/Psychiatric: alert, oriented x 3 Laboratory Results Last 24 Hours Test 06/12/17 06:35 White Blood Count 6.64 K/uL Red Blood Count 3.67 M/uL Hemoglobin 11.7 g/dL Hematocrit 34.0 % Mean Corpuscular Volume 92.6 fL Mean Corpuscular Hemoglobin 31.9 pg Mean Corpuscular Hemoglobin Concent 34.4 g/dl Platelet Count 181 K/uL Mean Platelet Volume 9.4 fL Neutrophils (%) (Auto) 71.4 % Lymphocytes (%) (Auto) 14.6 % Monocytes (%) (Auto) 11.4 % Eosinophils (%) (Auto) 1.8 % Basophils (%) (Auto) 0.5 % Neutrophils # (Auto) 4.74 K/uL Lymphocytes # (Auto) 0.97 K/uL Monocytes # (Auto) 0.76 K/uL Eosinophils # (Auto) 0.12 K/uL Basophils # (Auto) 0.03 K/uL RDW Standard Deviation 44.4 fL RDW Coefficient of Variation 13.1 % Immature Granulocyte % (Auto) 0.3 % Immature Granulocyte # (Auto) 0.02 K/uL Sodium Level 137 mmol/L Potassium Level 4.1 mmol/L Chloride Level 107 mmol/L Carbon Dioxide Level 27 mmol/L Anion Gap 3.0 mmol/L Blood Urea Nitrogen 20 mg/dl Creatinine 1.00 mg/dl Est Creatinine Clear Calc Drug Dose 70.1 ml/min Estimated GFR () 85.0 Estimated GFR (Non- 73.3 BUN/Creatinine Ratio 20.2 Random Glucose 97 mg/dl Calcium Level 8.3 mg/dl Magnesium Level 2.4 mg/dl Total Bilirubin 0.6 mg/dl Aspartate Amino Transf (AST/SGOT) 22 U/L Alanine Aminotransferase (ALT/SGPT) 19 U/L Alkaline Phosphatase 82 U/L Total Protein 5.9 gm/dl Albumin 3.1 gm/dl Globulin 2.8 gm/dl Albumin/Globulin Ratio 1.1 Assessment and Plan 76yo male - 1. left-sided hemothorax - suspected - with multiple left-sided rib fracture, s /p fall at home about 10 days ago. To the OR tomorrow with Dr Christianson to evacuate the suspected hemothorax. NPO after MN. Appreciate thoracic/pulmonary consults. 2. question of left-sided pneumonia - remains on rocephin. 3. HTN - his BPs are normal or low-normal; in light of surgery tomorrow will hold HCTZ-lisinopril and reinstitute post-op as BPs allow. 4. COPD - without exacerbation at this time. 5. DVT proph - chemical means contraindicated due to #1 above. Ambulation & SCDs for now. 6. FEN - NPO after MN; lytes stable; eating fine. 7. BPH - stable, voiding well. Continued [facility] stay due to: inadequate oral pain control, multiple IV medications needed, other (need for thoracic surgery) Discharge planning: home
[2017-06-12 22:56] VITALS: BP 149/66; PULSE 82; TEMP 36.6; O2SAT 91
[2017-06-13] VITALS (12 sets, daily range): BP systolic 93–147; BP diastolic 55–79; PULSE 68–97; TEMP 36.3–36.8; O2SAT 90–96
[2017-06-13] MEDS ORDERED: ATROPINE SULFATE 0.1 MG/ML 5ML SYR IV PRN ×2 (08:00→15:00)
[2017-06-13] MEDS: AVODART: ORDER AWAITING ACTION SCH ×3 (08:00→16:00)
[2017-06-13] MEDS ORDERED: ONDANSETRON INJ 2 MG/ML 2 ML VIAL IV PRN ×2 (08:00→15:00)
[2017-06-13] MEDS ORDERED: HYDROmorphone INJ 2 MG/ML SYR/VIAL IV PRN (08:00)
[2017-06-13] MEDS ORDERED: PHENYLEPHRINE 100MCG/ML 5ML SYR IV PRN ×2 (08:00→15:00)
[2017-06-13] MEDS ORDERED: EpHEDrine SULFATE INJ 50 MG/ML AMP IV PRN ×2 (08:00→15:00)
--- NOTE | 2017-06-13 08:03 | History & Physical Bridge Note ---
H&P Re-Evaluation Bridge Note: I have examined the patient, reviewed the History & Physical and in the interval since the performance of the History & Physical I have noted the following changes of clinical significance: This left sided rib fracture and hemothorax is on the LEFT side. NOT THE RIGHT SIDE>No other changes noted
[2017-06-13] MEDS: LIDODERM (LIDOCAINE) PATCH 5% TD SCH (08:12)
[2017-06-13] MEDS ORDERED: DEXAMETHASONE SOD INJ 4 MG/ML VIAL ONE (11:10)
[2017-06-13] MEDS ORDERED: MIDAZOLAM HCL 1 MG/ML 2ML VIAL ONE (11:10)
[2017-06-13] MEDS ORDERED: ONDANSETRON INJ 2 MG/ML 2 ML VIAL ONE (11:10)
[2017-06-13] MEDS ORDERED: GLYCOPYRROLATE INJ 0.2 MG/ML VIAL ONE ×2 (11:10→13:16)
[2017-06-13] MEDS ORDERED: PROPOFOL IV EMULSION 10 MG/ML 20 ML VIAL IV ONE (11:10)
[2017-06-13] MEDS ORDERED: FENTANYL CITRATE INJ 50 MCG/1 ML 2 ML VIAL ONE (11:10)
[2017-06-13] MEDS ORDERED: LIDOCAINE HCL 2% 2 ML VIAL (20MG/ML) ONE (11:10)
[2017-06-13] MEDS ORDERED: NEOSTIGMINE METHYLSULFATE 5 MG/5 ML SYR ONE (11:10)
--- NOTE | 2017-06-13 11:27 | PULMONARY PROGRESS NOTE ---
DATE: 06/13/2017 PROBLEM LIST: 1. Left hemothorax. 2. Status post fall. 3. Multiple rib fractures. 4. History of lung nodule. SUBJECTIVE: The patient reports that he is feeling well. He is not having any difficulty with his breathing at this time. I did review Dr. Ng's note. No significant cough, no significant wheezing, no significant chest congestion or tightness. No chest heaviness. No shortness of breath, no wheezing. He feels that his breathing is pretty much at his baseline. He still has a little bit of discomfort on the left side due to the rib fractures, but this seems to be fairly well-controlled with medication. He is not having any other concerns or problems. No cardiac symptoms. No chest pain, no palpitations, no angina. No GI symptoms. No nausea or vomiting. No indigestion or heartburn or difficulty with his bowels or difficulty voiding. No swelling in his extremities. The patient reports that Dr. Christianson is taking him to surgery around noon today. OBJECTIVE: GENERAL: The patient is a 76-year-old male, lying in bed, in no acute distress. He is alert and oriented x3. Mood is good. Affect is good. In no acute respiratory distress. He is able to complete sentences without difficulty. VITAL SIGNS: Temp 36.5, pulse 68, respiration 20, blood pressure is 115/65, pulse ox 93% on room air. HEENT: Normocephalic, atraumatic. Pupils equal, round, and reactive to light and accommodation. Extraocular movements are intact. Rosser moist gingival and buccal mucosa. NECK: Supple, no adenopathy or bruit. CARDIOVASCULAR: Regular rate and rhythm. No murmurs, gallops, or rubs. CHEST: Diminished breath sounds on the left base with no wheeze or rhonchi noted. ABDOMEN: Bowel sounds present. Abdomen soft, nontender. No guarding, rigidity, or organomegaly. EXTREMITIES: No erythema, no edema, no cyanosis or clubbing noted. LABORATORY DATA: No new lab data today. No new imaging data. IMPRESSION: This is a 76-year-old male who we followed for several years with a known history of pulmonary nodules which have been stable. The patient recently had a fall and sustained a left suspected hemothorax with multiple rib fractures on the left. According to the patient and what I can tell from the notes that the patient is having surgery today by Dr. Christianson. He has been having a VATS to remove the fluid for further evaluation. The patient appears stable and is doing relatively well from a pulmonary standpoint at this time. For now, he should tolerate his surgery without any difficulties. We will reevaluate tomorrow.
[2017-06-13] MEDS ORDERED: BUPIVACAINE LIPOSOME 1/3% 266 MG/20 ML VIAL INFIL ONE (11:58)
[2017-06-13] MEDS ORDERED: BUPIVACAINE 0.5 % 5 MG/1 ML MPF 30ML VIAL ONE (11:58)
[2017-06-13] MEDS ORDERED: SODIUM CHLORIDE 0.9% INJ 10 ML VIAL ONE ×2 (11:58→13:16)
[2017-06-13] MEDS ORDERED: SODIUM CHLORIDE 0.9% PF 50 ML VIAL ONE (12:41)
[2017-06-13] MEDS ORDERED: EpHEDrine SULFATE 50MG/5ML SYR ONE (13:16)
[2017-06-13] MEDS ORDERED: CEFAZOLIN SOD 1 GM VIAL ONE (13:16)
[2017-06-13] MEDS ORDERED: PHENYLEPHRINE HCL INJ 10 MG/ML VIAL ONE (13:16)
[2017-06-13] MEDS ORDERED: LARYING-O-JET KIT (LTA) ONE (13:35)
[2017-06-13] MEDS ORDERED: ROCURONIUM BROMIDE 10 MG/ML 5 ML VIAL IV ONE (13:35)
--- NOTE | 2017-06-13 14:02 | [facility] Post Operative Brief Note ---
Immediate Operative Summary Operative Date Jun 13, 2017. Pre-Operative Diagnosis Left loculated effusion with probable hemothorax Post-Operative Diagnosis Left Hemothorax Procedure(s) Performed Left Video Assisted Thoracoscopy with Evacuation of Hemothorax Wedge resection LLL Surgeon Dr. Christianson Smog Technician Surgeon(s) Jimmy An PA-C Estimated Blood Loss 5 cc Findings Consistent with Post-Op Diagnosis Specimens 1,660 cc's old blood and clot Wedge LLL Drains 24 fr chest tube Anesthesia Type General Complication(s) none Disposition Disposition: Recovery Room / PACU
[2017-06-13] MEDS ORDERED: METOCLOPRAMIDE HCL INJ 5 MG/ML 2 ML VIAL IV STA (14:05)
[2017-06-13] MEDS ORDERED: OXYCODONE HCL IR 5 MG TAB (IMMEDIATE RELEASE) PO PRN (14:15)
[2017-06-13] MEDS ORDERED: MoRPHine SULFATE 2 MG/ML CARP IV PRN (14:15)
[2017-06-13] MEDS ORDERED: D5W AND 1/2NSS 1,000 ML IV SCH (14:30)
[2017-06-13] MEDS ORDERED: HYDROmorphone INJ 2 MG/ML SYR/VIAL ONE (14:35)
[2017-06-13] MEDS: HYDROmorphone INJ 2 MG/ML SYR/VIAL IV PRN ×3 (14:46→15:01)
--- NOTE | 2017-06-13 15:01 | DIAGNOSTIC IMAGING REPORT ---
CHEST ONE VIEW PORTABLE CLINICAL HISTORY: Effusion. Loculated hemothorax. COMPARISON STUDY: Chest radiograph and chest CT June 11, 2017. FINDINGS: A left apical chest tube has been placed. There is a small left apical pneumothorax with 6 mm of superior pleural separation. A left pleural effusion has decreased in size. There is a small residual left pleural effusion. Bibasilar opacities are noted. Left sided rib fractures are better depicted on the previous chest CT. IMPRESSION: 1. Interval placement of a left chest tube with decrease in size of the left pleural effusion/hemothorax. Small left apical pneumothorax. 2. Bibasilar opacities which favor atelectasis. Electronically signed by: Darrell Anton M.D. 06/13/2017 3:00 PM Dictated Date/Time: 06/13/2017 2:54 PM
--- NOTE | 2017-06-13 15:08 | Anesthesiology Progress Note ---
Anesthesia Post Op Note Date & Time Jun 13, 2017 at 15:08 Vital Signs Pain Intensity: 5.0 Vital Signs Past 12 Hours Date Time Temp Pulse Resp B/P (MAP) Pulse Ox O2 Delivery O2 Flow Rate FiO2 06/13/17 14:55 92 17 116/70 95 Nasal Cannula 2 06/13/17 14:45 90 17 99/77 96 Oxymask 10 06/13/17 14:35 78 17 147/81 97 Oxymask 10 06/13/17 14:25 36.1 88 16 128/77 96 Oxymask 10 06/13/17 11:34 36.8 86 20 147/79 (101) 93 Room Air 06/13/17 08:00 Room Air 06/13/17 07:59 36.5 68 20 115/65 (82) 93 Room Air Notes Mental Status: alert / awake / arousable, participated in evaluation Pt Amnestic to Procedure: Yes Nausea / Vomiting: adequately controlled Pain: adequately controlled Airway Patency, RR, SpO2: stable & adequate BP & HR: stable & adequate Hydration State: stable & adequate Anesthetic Complications: no major complications apparent
[2017-06-13] MEDS: KETOROLAC TROMETHAMINE 15 MG/ML VIAL IV. SCH ×2 (16:06→23:54)
[2017-06-13] MEDS: ACETAMINOPHEN IV 1,000 MG in EMPTY BAG 0 ML IV SCH ×2 (16:06→23:53)
[2017-06-13] MEDS ORDERED: NURSING VERBAL MED ORDER ONE (16:30)
[2017-06-13] MEDS: CEFTRIAXONE SOD INJ 1,000 MG in DEXTROSE 5% 50ML 50 ML IV SCH (17:26)
[2017-06-13] MEDS: PANTOprazole SOD 40 MG TAB PO SCH (17:26)
--- NOTE | 2017-06-13 18:08 | OPERATIVE REPORT ---
DATE OF OPERATION: 06/13/2017 REASON FOR PROCEDURE: Clotted left hemothorax. POSTOPERATIVE DIAGNOSIS: Same. PROCEDURE: Thoracoscopic evacuation of left clotted hemothorax. SURGEON: Joey Christianson MD PEARL RESTORER: DEANNA Ochoa. (Mr. Pederson was present for the entire case and closed the skin incisions at the conclusion and managed the camera the entire case). ANESTHESIA: General anesthesia endotracheal intubation using a single lumen tube. INDICATION FOR PROCEDURE AND FINDINGS: This is a 76-year-old male who fell about 10 days prior to admission to [facility] and landed on his left chest. He had a broken rib. He was initially seen and was watched. However, he became more and more short of breath, was found to have a fairly large effusion which we have assumed to be a hemothorax. The patient was transferred up from [facility] yesterday and on the evening of the , I reviewed his films and indeed I had felt that rather than to put a chest tube in, we should evacuate chest via a thoracoscopic approach. He agreed. Today on 06/13/2017, I did an uncomplicated thoracoscopy with two 5 mm ports and a single 12 mm port. We went in and found over 1600 mL of old blood, which was nonclotting, but he also had a fair amount of clot which I removed also. I removed most of this with the sucker but also used forceps. We were able to free up out of lungs quite nicely. What it was very interesting is the area of his break in his lateral left chest wall, a portion of his left lower lobe was stuck inside this fracture. I wedged off a small 1 cm area and sent it off to the lab. It is very interesting but he did not have an air leak. We performed an Exparel block. He tolerated it well. PROCEDURE: The patient brought to operating room and laid in supine position. General anesthesia induced and endotracheal intubation performed with a single lumen tube. The patient was placed in right lateral decubitus position. His left chest prepped and draped in usual sterile fashion. Two separate 5 mm incisions were made, one about the fourth interspace, one about the eighth interspace. The fourth interspace incision was made anterior to the latissimus dorsi muscle and the posterior incision was made in the interspace below the tip of the scapula. I then made a 12 mm incision at about the ninth interspace anteriorly. Through these 3 ports, I was able to suction out a large amount of old blood. There was over 1600 mL of old blood that was drained. I also removed a fair amount of thick clotted blood. I broke up some of this and suctioned it out; however, I had to switch over to a 5 mm port into the smaller ports and used bigger forceps through the 12 mm port in order to remove this clot. After we had done this in its entirety, it could be seen that a very tip of the left lung was stuck in the fracture which was not displaced. It appeared that discharge came out and then a small piece of lung got stuck. I wedged this out using Endo-MADELIN stapler. There was a small 1 cm or so peripheral part of the lung which I removed. I then removed this from that area where it was stuck. There was no bleeding whatsoever. I used warm saline and irrigated out the chest and then used suction csr retail. I then mixed 266 mg of Exparel with 30 mL of a 0.5% bupivacaine and 150 mL of normal saline. I injected all 3 incisions prior to inserting the ports and then used it to do an intercostal nerve block from the 2nd-11th rib. I then placed a 24-Upper Sorbian chest tube to the anterior thoracoscopy port and directed towards the apex. It was held in place with heavy silk suture. A 4-0 Monocryl was used to close the skin incisions. He tolerated it well, was extubated in the room. I attest to the content of the Intraoperative Record and any orders documented therein. Any exceptions are noted below. SIERRA
[2017-06-13] MEDS: DOCUSATE SODIUM 100 MG CAP PO SCH (20:37)
[2017-06-13] MEDS: ATORVASTATIN 40 MG TAB PO SCH (20:37)
[2017-06-13] MEDS: METOCLOPRAMIDE HCL INJ 5 MG/ML 2 ML VIAL IV. SCH (21:55)
--- NOTE | 2017-06-14 00:17 | Progress Note ---
Subjective Date of Service: late entry for visit Jun 13, 2017. Subjective Pt evaluation today including: conversation w/ patient, physical exam, chart review, lab review, review of studies (op note from Dr. Christianson), review of inpatient medication list Pain: "I feel great" - amazingly denied ANY pain post-op PO Intake: tolerated dinner tonight Voiding: no voiding problems pt incredibly stated he "felt great" after the surgery today had NO pain and he was overjoyed that he could "take a deep breath" Review of Systems Respiratory: No shortness of breath Cardiac: No chest pain Abdomen: + constipation, No pain Objective Vital Signs Date Time Temp Pulse Resp B/P (MAP) Pulse Ox O2 Delivery O2 Flow Rate FiO2 06/13/17 22:52 36.8 86 18 131/75 (93) 93 Nasal Cannula 3.0 06/13/17 20:46 36.6 80 18 118/71 (87) 92 Nasal Cannula 3.0 06/13/17 19:47 36.7 83 18 115/65 (82) 96 Nasal Cannula 3.0 06/13/17 19:15 91 Nasal Cannula 2.5 06/13/17 18:40 36.3 68 18 98/55 (69) 94 Nasal Cannula 3.0 06/13/17 17:39 36.8 87 18 103/67 (79) 92 Nasal Cannula 3.0 06/13/17 16:42 36.4 77 18 93/58 (70) 90 Nasal Cannula 3.0 06/13/17 16:15 Nasal Cannula 3.0 06/13/17 16:11 36.7 97 18 111/69 (83) 90 Nasal Cannula 3.0 06/13/17 15:53 95 Nasal Cannula 2.0 06/13/17 15:52 95 Nasal Cannula 2.0 06/13/17 15:38 36.5 91 19 122/75 (91) 93 Nasal Cannula 2.0 06/13/17 15:15 36.7 89 23 117/77 94 Nasal Cannula 2 06/13/17 15:05 95 17 117/67 94 Nasal Cannula 2 06/13/17 14:55 92 17 116/70 95 Nasal Cannula 2 06/13/17 14:45 90 17 99/77 96 Oxymask 10 06/13/17 14:35 78 17 147/81 97 Oxymask 10 06/13/17 14:25 36.1 88 16 128/77 96 Oxymask 10 06/13/17 11:34 36.8 86 20 147/79 (101) 93 Room Air 06/13/17 08:00 Room Air 06/13/17 07:59 36.5 68 20 115/65 (82) 93 Room Air Physical Exam General Appearance: no apparent distress ENT: pharynx normal Neck: no JVD Respiratory/Chest: no respiratory distress, no accessory muscle use, + decreased breath sounds (minimal, left base - airation MUCH improved today following the surgery) Cardiovascular: regular rate, rhythm, no gallop, no murmur Abdomen: normal bowel sounds, non tender, soft, no organomegaly Extremities: no pedal edema Neurologic/Psychiatric: alert, oriented x 3 Assessment and Plan 76yo male - 1. left-sided hemothorax - s/p Thoracoscopic evacuation of left lung clotted hemothorax and small LLL wedge resection - management per Dr. Christianson. Chest tube in place. 2. question of left-sided pneumonia - remains on rocephin. Antibiotics were started prior to transfer from [facility] as his CT chest there showed possible left-sided pneumonia. I would be in favor of changing the rocephin to oral antibiotics tomorrow and completing a short course only. 3. HTN - his BPs continue to be normal or low-normal and thus will keep HCTZ- lisinopril on hold for now. 4. COPD - without exacerbation at this time. 5. DVT proph - chemical means contraindicated due to #1 above. Ambulation & SCDs for now. 6. FEN - restarted diet, lytes stable, BMP in am 7. BPH - stable, voiding well. Continued [facility] stay due to: multiple IV medications needed, other (s/p surgery today) Discharge planning: home
[2017-06-14 00:39] VITALS: BP 141/90; PULSE 84; TEMP 36.6; O2SAT 94
[2017-06-14 02:46] VITALS: BP 124/64; PULSE 74; TEMP 36.7; O2SAT 95
[2017-06-14 04:40] VITALS: BP 136/76; PULSE 82; TEMP 36.8; O2SAT 94
[2017-06-14] MEDS: METOCLOPRAMIDE HCL INJ 5 MG/ML 2 ML VIAL IV. SCH (06:03)
[2017-06-14 06:05] VITALS: O2SAT 95
[2017-06-14 06:17] LABS: HEMATOCRIT 29.5 % (42-52); HEMOGLOBIN 10.3 g/dL (14.0-18.0); MEAN CELL VOLUME 92.2 fL (80-100); MEAN CORPUSCULAR HEMOGLOBIN 32.2 pg (25-34); MEAN CORPUSCULAR HGB CONC 34.9 g/dl (32-36); PLATELET COUNT 184 K/uL (130-400); RED CELL DISTRIBUTION WIDTH CV 12.8 % (11.5-14.5); RED CELL DISTRIBUTION WIDTH SD 43.7 fL (36.4-46.3); WHITE BLOOD COUNT 10.75 K/uL (4.8-10.8)
[2017-06-14 06:47] LABS: CALCIUM 7.6 mg/dl (8.5-10.1); CREATININE 1.4 mg/dl (0.60-1.40); POTASSIUM 4.2 mmol/L (3.5-5.1)
--- NOTE | 2017-06-14 07:13 | DIAGNOSTIC IMAGING REPORT ---
CHEST ONE VIEW PORTABLE CLINICAL HISTORY: Effusion. COMPARISON STUDY: Chest radiograph June 13, 2017. FINDINGS: A left apical chest tube remains in place. Left pneumothorax is decreased in size. There is a suspected trace residual left apical pneumothorax. Left lower lung aeration has improved. There is a small left pleural effusion with left basilar opacity. Linear right lower lung opacity favors atelectasis. Cardiac size is normal. There is no evidence for pulmonary edema. IMPRESSION: 1. Left chest tube in place. Decrease in size of the left pneumothorax. Suspected trace residual pneumothorax. 2. Interval improvement in left basilar opacity. Electronically signed by: Darrell Anton M.D. 06/14/2017 7:12 AM Dictated Date/Time: 06/14/2017 7:10 AM
[2017-06-14] MEDS: AVODART: ORDER AWAITING ACTION SCH ×2 (08:00)
[2017-06-14] MEDS ORDERED: IBUP-1050 PO (08:43)
[2017-06-14] MEDS ORDERED: ACET-1047 PO (08:43)
[2017-06-14] MEDS ORDERED: CLC100 PO (08:43)
--- NOTE | 2017-06-14 08:45 | Discharge Instructions ---
Discharge Instructions Date of Service Jun 14, 2017. Admission Reason for Admission: Loculated Hemothroax Discharge Discharge Diagnosis / Problem: Loculated Hemothroax Discharge Goals Goal(s): Decrease discomfort, Improve function, Increase independence Activity Recommendations Activity Limitations: as noted below Lifting Limitations: none 1. Do not drive until cleared to do so by Dr. Christianson. 2. Do not drive if taking ultram. . Instructions / Follow-Up Instructions / Follow-Up 1. You may remove dressings in 3 days and shower thereafter. No tub baths. 2. Office appointment with Dr. Christianson in 1 month. Office will call you with date and time of appointment. Go to hospital 1 hour before appointment to have a chest x-ray taken. Current Hospital Diet Patient's current hospital diet: Regular Diet Discharge Diet Recommended Diet: Regular Diet Procedures Procedures Performed: Left Video Assisted Thoracoscopy with Evacuation of Hemothorax Wedge resection LLL Pending Studies Studies pending at discharge: no Medical Emergencies . Who to Call and When: Medical Emergencies: If at any time you feel your situation is an emergency, please call 911 immediately. . Non-Emergent Contact Non-Emergency issues call your: Surgeon Call Non-Emergent contact if: you have a fever, your pain is not controlled, wound has increased drainage . "Provider Documentation" section prepared by Sriram An. .
[2017-06-14 08:50] VITALS: BP 126/83; PULSE 73; TEMP 36.6; O2SAT 93
[2017-06-14] MEDS ORDERED: ACETAMINOPHEN 325 MG TAB PO SCH (09:00)
[2017-06-14] MEDS ORDERED: SENNA 8.6 MG TAB PO SCH (09:00)
[2017-06-14] MEDS ORDERED: POLYETHYLENE (MIRALAX) 17 GM PACK PO SCH (09:00)
[2017-06-14] MEDS ORDERED: ENOXAPARIN 40 MG/0.4 ML SYR SQ SCH (09:00)
[2017-06-14] MEDS: LIDODERM (LIDOCAINE) PATCH 5% TD SCH (09:00)
--- NOTE | 2017-06-14 09:05 | DIAGNOSTIC IMAGING REPORT ---
CHEST ONE VIEW PORTABLE HISTORY: Left-sided chest tube removal. COMPARISON: Chest 06/14/2017. FINDINGS: Left-sided chest tube is been removed. No definite pneumothorax. Nondisplaced left posterior lateral eighth and ninth rib fractures are noted. Left basilar density persists. There may be a trace left pleural effusion. The heart is normal in size. Linear density at the right lower lobe persists and favors subsegmental atelectasis. IMPRESSION: 1. Interval removal of the left-sided chest tube. No definite pneumothorax. 2. Left lower rib fractures, left basilar density, and a trace left pleural effusion persist. Electronically signed by: Jenaro Padilla M.D. 06/14/2017 9:04 AM Dictated Date/Time: 06/14/2017 9:02 AM
[2017-06-14] MEDS ORDERED: ULT/50 PO (09:16)
[2017-06-14] MEDS: KETOROLAC TROMETHAMINE 15 MG/ML VIAL IV. SCH (09:29)
[2017-06-14] MEDS: ASPIRIN 81 MG ECTAB PO SCH (09:30)
[2017-06-14] MEDS: DOCUSATE SODIUM 100 MG CAP PO SCH (09:31)
--- NOTE | 2017-06-14 10:16 | PULMONARY PROGRESS NOTE ---
DATE: 06/14/2017 PROBLEM LIST: Includes: 1. Left hemothorax. 2. Multiple rib fractures. 3. History of lung nodule. SUBJECTIVE: The patient underwent VATS procedure with evacuation of blood clot from a rib fracture yesterday with Dr. Christianson. Of interest, I did speak with Dr. Christianson and apparently small part of the patient's lung was trapped within the fracture line, so Dr. Christianson did have to wedge out about a 1 cm piece of tissue. There were no air leaks. By the time I saw the patient, he already had the chest tube out and was stable. The patient reports that he feels well, his breathing is good, he has no shortness of breath, no chest heaviness or tightness, no wheezing. He is not having any significant cough or congestion. He reports no discomfort at all. He denies any other concerns or problems. He feels well. His appetite is good. He states that he is actually hungry this morning. No nausea or vomiting. He has not had any diarrhea. He states that overnight, they did have to put a catheter in and they got about 700 mL of fluid out. He states that he has voided at least 3-4 times since then on his own. OBJECTIVE: GENERAL: The patient is a 76-year-old male in no acute distress. He is alert and oriented x3. Mood is good. Affect is good. VITAL SIGNS: Temperature is 36.6, pulse 73, respirations 18, blood pressure is 126/83, pulse ox 93% on room air. HEENT: Normocephalic, atraumatic. Pupils equal, round react to light and accommodation. Extraocular movements are intact. [place], moist gingival and buccal mucosa. NECK: Supple. There is no mass, no adenopathy, no bruit. CHEST: Diminished breath sounds, but clear. I do not appreciate any wheeze, rale or rhonchi. CARDIOVASCULAR: Regular rate and rhythm. There are no murmurs, gallops or rubs noted. ABDOMEN: Bowel sounds are present throughout. Abdomen is soft, nontender. No guarding, rigidity or organomegaly. EXTREMITIES: No erythema or edema. LABORATORY DATA: White count is 10,000, H and H 10.3 and 29.5. BUN 26, creatinine 1.4. IMPRESSION: A chest x-ray following removal of the left-sided chest tube, no pneumothorax. Small amount of left pleural effusion. IMPRESSION: 1. The patient is a 76-year-old male who sustained a fall, injuring his left ribs and sustaining multiple rib fractures. Because of this, he ended up with a hemothorax. Dr. Christianson did perform VATS procedure on him. Per his note, he evacuated about 1600 mL of old blood that was drained. He also removed a large clot area. The patient is doing well post surgery, had chest tube removed this morning. Overall, he is feeling well. 2. History of pulmonary nodule. He will be followed in clinic. At this point, the patient is going to be discharged home today. He was given instructions to contact the office after he gets back from [place] where he is going with his . We will set up an appointment after he gets back.
[2017-06-14 10:36] VITALS: BP 126/83; PULSE 73; TEMP 36.6; O2SAT 93
--- NOTE | 2017-06-14 13:08 | DISCHARGE SUMMARY ---
DISCHARGE DIAGNOSES: 1. Clotted hemothorax, left chest. 2. Blunt trauma, left chest with rib fractures. HOSPITAL COURSE: This is a very nice 76-year-old man who is actually fairly healthy, who fell about 10 days prior to admission to [facility] and fractured some ribs on the left side. An enlarging effusion. His hemoglobin dropped. This is a complex effusion. He was transferred up here to [facility]. On 06/13/2017, I did a thoracoscopic evacuation of this hemothorax. There were no abnormalities noted except for the fact that the edge of the left lower lobe was stuck in the rib fractures of the chest wall. I wedged a small segment out. There was no air leak, no bleeding and the patient did quite well with the Exparel block. We removed his chest tube the following day as he drained very little. He was ready for discharge today on 06/14/2017. All in all, we were quite happy with him. His disposition is a bit unusual. His family is taking him to [place], [place]. The patient's has had lung cancer in the past, was resected in [place] and has a thoracic surgeon that she follows up with. I would like to see the patient back in a month or so. I discussed this case with the patient and his and we will give him Ultram for pain, but he really has not had much in the way of pain now, we did use just two 5 mm ports and a 12 mm port. Overall, he looks quite good. He has been ambulating in the hallway. He is tolerating regular diet on room air.
== END 2017-06-14 11:15 | disposition home or self-care (01) | DRG 163 ==
LOC: C.MSN 16:20
PROVIDERS: ADMIT Internal Medicine; ATTEND Surgery
PROC: 0B9L4ZZ Drainage of Left Lung, Percutaneous Endoscopic Approach (ICD-10-PCS; principal; 2017-06-13 12:00)
PROC: 0BCL4ZZ Extirpation of Matter from Left Lung, Percutaneous Endoscopic Approach (ICD-10-PCS; principal; 2017-06-13 12:00)
PROC: 0BBJ4ZZ Excision of Left Lower Lung Lobe, Percutaneous Endoscopic Approach (ICD-10-PCS; principal; 2017-06-13 12:00)
DX: S27.1XXA Traumatic hemothorax, initial encounter (principal); J18.9 Pneumonia, unspecified organism; J44.0 Chronic obstructive pulmonary disease with (acute) lower respiratory infection; S22.42XA Multiple fractures of ribs, left side, initial encounter for closed fracture; W17.89XA Other fall from one level to another, initial encounter; R91.1 Solitary pulmonary nodule; Z77.090 Contact with and (suspected) exposure to asbestos; Z87.891 Personal history of nicotine dependence; I10 Essential (primary) hypertension; E78.5 Hyperlipidemia, unspecified; N40.1 Benign prostatic hyperplasia with lower urinary tract symptoms; R33.8 Other retention of urine; K21.9 Gastro-esophageal reflux disease without esophagitis; Y92.008 Other place in unspecified non-institutional (private) residence as the place of occurrence of the external cause; Z79.82 Long term (current) use of aspirin; Z79.899 Other long term (current) drug therapy; Z91.030 Bee allergy status; Z80.0 Family history of malignant neoplasm of digestive organs; Z82.0 Family history of epilepsy and other diseases of the nervous system; Z82.49 Family history of ischemic heart disease and other diseases of the circulatory system; Z83.49 Family history of other endocrine, nutritional and metabolic diseases

== ENCOUNTER → 2017-07-04 | Outpatient (CLI) | payer BC, OTHER ==
[~2017-07-04] MED LIST changes: +ACET-1047 PO; +CLC100 PO; +IBUP-1050 PO; -NITR-5 PO; -OXYC-57 PO; +ULT/50 PO
--- NOTE | 2017-07-04 11:10 | DIAGNOSTIC IMAGING REPORT ---
CHEST 2 VIEWS ROUTINE CLINICAL HISTORY: J94.2 [id number] COMPARISON STUDY: 06/14/2017 FINDINGS: The cardiac and mediastinal contours remain stable. There is persistent blunting of the left lateral costophrenic angle. There are improving left basal airspace opacities. There is calcified granuloma within the left midlung zone. The right lung is clear.[ Left rib deformities are again evident. IMPRESSION: Persistent blunting of the left lateral costophrenic angle consistent with a small effusion. Improving left basilar airspace opacities Electronically signed by: Blue Bagley M.D. 07/04/2017 11:08 AM Dictated Date/Time: 07/04/2017 11:07 AM
== END | disposition home or self-care (01) ==
LOC: C.RAD 10:19
PROVIDERS: ATTEND Surgery
DX: J94.2 Hemothorax (principal); R91.8 Other nonspecific abnormal finding of lung field